=== PATIENT | male | born 1975 | race Two or more races ===

== ENCOUNTER 2024-01-02 16:38 | Emergency (ER) | payer OTHER ==
[~2024-01-02] VITALS: Ht 182.9 cm; Wt 95.3 kg
[2024-01-02] MEDS ORDERED: TRAMADOL HCL 50 MG TABLET PO ONE (18:00)
[2024-01-02] MEDS ORDERED: ORPHENADRINE CITRATE 30 MG/ML AMPUL IM ONE (18:00)
[2024-01-02] MEDS ORDERED: TRAM1TAB98 PO (21:54)
[2024-01-02] MEDS ORDERED: NORFLEX100MG PO (21:54)
== END 2024-01-02 22:22 | disposition home or self-care (01) ==
LOC: ER 16:40
DX: M54.50 Low back pain, unspecified (principal); M54.30 Sciatica, unspecified side; Z88.6 Allergy status to analgesic agent
CPT/HCPCS: 72131; 96372; 99284; J2360